=== PATIENT | male | born 1975 | race Caucasian/White ===

== ENCOUNTER 2021-01-05 13:42 | Emergency (ER) | payer SELFPAY ==
[2021-01-05] MEDS ORDERED: Proparacaine 0.5% Opth 15 ML BOT ONE (14:06)
[2021-01-05] MEDS ORDERED: Fluorescein Opthalmic Strip ONE (14:06)
== END 2021-01-05 15:45 | disposition home or self-care (01) ==
LOC: ERS 13:42
DX: T15.02XA Foreign body in cornea, left eye, initial encounter (principal); F17.200 Nicotine dependence, unspecified, uncomplicated; W22.8XXA Striking against or struck by other objects, initial encounter
CPT/HCPCS: 65210